=== PATIENT | male | born 1990 | race Caucasian/White ===

== ENCOUNTER 2019-10-24 18:54 | Inpatient (IN) | payer OTHER ==
[~2019-10-24] VITALS: Ht 172.7 cm; Wt 78.0 kg
[2019-10-24 19:07] VITALS: Ht 172.7 cm; Wt 78.0 kg
[2019-10-24 19:58] LABS: BASOPHIL % 0.3 % (0-2); PLATELET COUNT 287 x10^3mcL (130-400); RED CELL DISTRIBUTION WIDTH 14.5 % (11.5-14.5)
[2019-10-24 20:07] LABS: CARBON DIOXIDE 28.2 mmol/L (21-32); CREATININE SERUM 1.5 mg/dL (0.7-1.3); POTASSIUM SERUM 4.4 mmol/L (3.5-5.1)
[2019-10-24 20:11] LABS: ALBUMIN 4.1 g/dL (3.4-5.0); BILIRUBIN TOTAL 0.3 mg/dL (0.20-1.00)
[2019-10-24 21:07] LABS: UA SPECIFIC GRAVITY 1.025 (1.005-1.035); microscopic required? YES; urine erythrocyte TRACE (NEGATIVE)
[2019-10-25] VITALS (8 sets, daily range): BP systolic 106–141; BP diastolic 50–85
[2019-10-25 06:37] LABS: BASOPHIL % 0.3 % (0-2); PLATELET COUNT 235 x10^3mcL (130-400); RED CELL DISTRIBUTION WIDTH 14.3 % (11.5-14.5)
[2019-10-25 06:53] LABS: CALCIUM 8.2 mg/dL (8.5-10.1); CARBON DIOXIDE 26.7 mmol/L (21-32); CHLORIDE SERUM 107 mmol/L (98-107); CREATININE SERUM 1.4 mg/dL (0.7-1.3); GFR1 > 60 mL/min; GLUCOSE SERUM 92 mg/dL (74-106); MAGNESIUM 2.1 mg/dL (1.8-2.4); PHOSPHOROUS 4.6 mg/dL (2.5-4.9); POTASSIUM SERUM 3.9 mmol/L (3.5-5.1); SODIUM SERUM 141 mmol/L (136-145)
[2019-10-25] MEDS ORDERED: FLO4 PO (20:12)
[2019-10-25] MEDS ORDERED: AUGMENTIN 875-1 EACH PO (20:25)
== END 2019-10-25 21:49 | disposition home or self-care (01) | DRG 694 ==
LOC: ED 18:54 → MU 23:28
PROVIDERS: Emergency Medicine; ADMIT Family Medicine
DX: N13.30 Unspecified hydronephrosis (principal); N20.1 Calculus of ureter; N17.0 Acute kidney failure with tubular necrosis; Z87.442 Personal history of urinary calculi; Z79.899 Other long term (current) drug therapy
CPT/HCPCS: G0378; J0696; J1885; J2405; J7030; J7060; Q0092